=== PATIENT | female | born 1975 | race Caucasian/White ===

== ENCOUNTER → 2017-08-02 | Outpatient (CLI) | payer BC ==
--- NOTE | 2017-08-02 18:23 | WOMENS IMAGING REPORT ---
EXAM DESCRIPTION: BILAT SCREENING MAMMO W/CAD COMPLETED DATE/TIME: 08/02/2017 3:27 pm REASON FOR STUDY: SCREENING MAMMO Z12.39 ENCOUNTER FOR [facility] SCREENING FOR MALIGNANT NEOPLASM OF COMPARISON: Baseline study TECHNIQUE: Standard craniocaudal and mediolateral oblique views of each breast recorded using digita l acquisition. LIMITATIONS: None. FINDINGS: RIGHT BREAST MASSES: No suspicious masses. CALCIFICATIONS: No new or suspicious calcifications. ARCHITECTURAL DISTORTION: None. DEVELOPING DENSITY: None. ASYMMETRY: None noted. OTHER: Asymmetrically dense tissue is present in the right breast upper outer quadrant on MLO view on ly. This requires further evaluation with craniocaudad and 90 mediolateral tomosynthesis. If this finding persists then ultrasound of the right upper outer quadrant be required for followup. LEFT BREAST MASSES: No suspicious masses. CALCIFICATIONS: No new or suspicious calcifications. ARCHITECTURAL DISTORTION: None. DEVELOPING DENSITY: On the left breast CC view only, in the deep central breast a nodule versus super imposed shadows is present for which left breast CC and 90 tomosynthesis is recommended for followup . If this finding persists, then ultrasound of the left breast disease required for followup. ASYMMETRY: None noted. OTHER: No other significant findings. Read with the assistance of CAD. .[facility] - R2 Cenova Version 1.3 .[facility] - R2 Cenova Version 1.3 .[facility] - R2 Cenova Version 2.[address] - R2 Cenova Version 2.4 .[facility] - R2 [employer] Version 9.2 IMPRESSION: Bilateral mammographic findings which require further investigation with diagnostic mamm ograms/tomosynthesis. Possible bilateral breast ultrasound for followup also. BREAST DENSITY: c. The breasts are heterogeneously dense, which may obscure small masses. BIRAD: 0 Incomplete: Needs Additional Imaging Evaluation and/or prior Mammograms for Comparison. RECOMMENDATION: RECOMMENDED FOLLOW-UP: Bilateral diagnostic mammograms/ tomosynthesis and possible u ltrasound The patient will be contacted for additional imaging. COMMENT: The patient has been notified of the results by letter per MQSA requirements. Additional no tification policies are in place for contacting patient with suspicious or incomplete findings. Quality ID #225: The [employer] recommends an annual screening mammogram for women aged 40 years or over. This facility utilizes a reminder system to ensure that all patients receive reminder letters, and/or direct phone calls for appointments. This includes reminders for routine scr eening mammograms, diagnostic mammograms, or other Breast Imaging Interventions when appropriate. Th is patient will be placed in the appropriate reminder system. The [employer] (ACR) has developed recommendations for screening MRI of the breast s in certain patient populations, to be used in conjunction with mammography. Breast MRI surveillanc e may be appropriate for women with more than 20% lifetime risk of developing breast cancer as deter mined by genetic testing, significant family history of the disease, or history of mantle radiation f or Hodgkins Disease. ACR Practice Guidelines 2008. TECHNICAL DOCUMENTATION: FINDING NUMBER: (1) ASSESSMENT: (1) JOB ID: [id number] [employer]- All Rights Reserved
== END ==
LOC: WI 14:00
PROVIDERS: ATTEND Nurse Practitioner Family
DX: Z12.31 Encounter for screening mammogram for malignant neoplasm of breast (principal)
CPT/HCPCS: 77067; G0202

== ENCOUNTER → 2017-08-23 | Outpatient (CLI) | payer BC ==
--- NOTE | 2017-08-23 12:38 | WOMENS IMAGING REPORT ---
EXAM DESCRIPTION: 3D DX MAMMO BILAT COMPLETED DATE/TIME: 08/23/2017 11:12 am REASON FOR STUDY: INCONCLUSIVE MAMMO N63 UNSPECIFIED LUMP IN BREAST COMPARISON: 08/02/2017. TECHNIQUE: Bilateral MLO, CC, and true lateral images acquired with tomosynthesis. LIMITATIONS: None. FINDINGS: RIGHT BREAST MASSES: No suspicious masses. CALCIFICATIONS: No new or suspicious calcifications. ARCHITECTURAL DISTORTION: None. DEVELOPING DENSITY: None. ASYMMETRY: None noted. OTHER: No other significant findings. LEFT BREAST MASSES: No suspicious masses. CALCIFICATIONS: No new or suspicious calcifications. ARCHITECTURAL DISTORTION: None. DEVELOPING DENSITY: None. ASYMMETRY: None noted. OTHER: No other significant findings. IMPRESSION: Unremarkable bilateral mammogram. No worrisome findings. BREAST DENSITY: b. There are scattered areas of fibroglandular density. BIRAD: 1 Negative. RECOMMENDATION: RECOMMENDED FOLLOW UP: Birads 1 or 2: The patient should resume routine screening . SPECIFIC INTERVENTION/IMAGING/CONSULTATION RECOMMENDED:No additional intervention/ imaging/consultati on needed at this time. COMMUNICATION:The negative/benign results were communicated to the patient. COMMENT: The patient has been notified of the results by letter per MQSA requirements. Additional no tification policies are in place for contacting patient with suspicious or incomplete findings. Quality ID #[id number]: The [employer] recommends an annual screening mammogram for women aged 40 years or over. This facility utilizes a reminder system to ensure that all patients receive reminder letters, and/or direct phone calls for appointments. This includes reminders for routine scr eening mammograms, diagnostic mammograms, or other Breast Imaging Interventions when appropriate. Th is patient will be placed in the appropriate reminder system. The [employer] (ACR) has developed recommendations for screening MRI of the breast s in certain patient populations, to be used in conjunction with mammography. Breast MRI surveillanc e may be appropriate for women with more than 20% lifetime risk of developing breast cancer as deter mined by genetic testing, significant family history of the disease, or history of mantle radiation f or Hodgkins Disease. ACR Practice Guidelines 2008. DBT Technology DBT is a type of tomographic mammography. With conventional mammography, overlapping breast tissue ma y make lesions difficult to detect, even with good compression. DBT uses an x-ray tube that rotates a round the breast, taking images at different angles. These images are then combined to create thin sl ices of the breast that the radiologist can view as a 3D reconstruction. The Hologic unit can perform full-field digital mammograms (2D imaging); or DBT (3D imaging); or both, in a combination mode that quickly performs both the mammogram and the tomosynthesis scan while the breast is still compressed. RS [id number]: Fluoroscopic imaging is not utilized for breast tomosynthesis. TECHNICAL DOCUMENTATION: FINDING NUMBER: (1) ASSESSMENT: (1) JOB ID: [id number] [employer]- All Rights Reserved
== END ==
LOC: WI 10:42
PROVIDERS: ATTEND Nurse Practitioner Family
DX: N63 Unspecified lump in breast (principal)
CPT/HCPCS: G0279; G0204; 77062; 77066

== ENCOUNTER 2018-07-16 08:23 | Emergency (ER) | payer OTHER, BC ==
[2018-07-16] MEDS ORDERED: ASPIRIN 81 MG TABLET, CHEWABLE PO ONE (08:32)
--- NOTE | 2018-07-16 09:01 | RADIOLOGY REPORT (SQ) ---
EXAM DESCRIPTION: CHEST SINGLE VIEW COMPLETED DATE/TIME: 07/16/2018 8:55 am REASON FOR STUDY: Chest pain COMPARISON: 03/22/2012 EXAM PARAMETERS: NUMBER OF VIEWS: One view. TECHNIQUE: Single frontal radiographic view of the chest acquired. RADIATION DOSE: NA LIMITATIONS: None. FINDINGS: LUNGS AND PLEURA: No opacities, masses or pneumothorax. No pleural effusion. MEDIASTINUM AND HILAR STRUCTURES: No masses. Contour normal. HEART AND VASCULAR STRUCTURES: Heart normal in size. Normal vasculature. BONES: No acute findings. HARDWARE: None in the chest. OTHER: No other significant finding. IMPRESSION: NO ACUTE RADIOGRAPHIC FINDING IN THE CHEST. TECHNICAL DOCUMENTATION: JOB ID: [id number] [employer]- All Rights Reserved Reading location - IP/workstation name: [email or web address]
--- NOTE | 2018-07-16 09:06 | ER Document Report ---
ED Cardiac - General Chief Complaint: Chest Pain Stated Complaint: CHEST PAIN Time Seen by Provider: 07/16/18 09:05 Mode of Arrival: Ambulatory Information source: Patient TRAVEL OUTSIDE OF THE [place] IN LAST 30 DAYS: No - HPI Patient complains to provider of: Other - This 43-year-old female presents 4 combination of fatigue and chest discomfort which is similar to previous episodes in the past which have been attributed to pericardial effusion which she has had chronically. She is a myriad of complaints including some shortness of breath, some chest discomfort, occasional headaches, bowel rumbling without a sensation of cramping or abdominal pain uncertainty of whether or not she is ever had a heart attack stroke or other health problem. She is currently on [facility] from [facility] [employer] for her chest pain and effusion as well as chronic low back pain and radiculopathy. She denies any recent trauma, falls, fevers, chills, rashes or other symptoms. Nothing seems to make this any better, having to do thinks makes it worse. - Related Data Allergies/Adverse Reactions: No Known Allergies Allergy (Verified 07/16/18 08:28) Past Medical History - General Information source: Patient - Social History Smoking Status: Never Smoker Family History: None - Past Medical History Cardiac Medical History: Denies: Hx Coronary Artery Disease, Hx Heart Attack, Hx Hypertension Pulmonary Medical History: Denies: Hx Asthma, Hx Bronchitis, Hx COPD, Hx Pneumonia Neurological Medical History: Denies: Hx Cerebrovascular Accident, Hx Seizures Musculoskeletal Medical History: Denies Hx Arthritis Past Surgical History: Denies: Hx Hysterectomy - Immunizations Hx Diphtheria, Pertussis, Tetanus Vaccination: Yes Hx Pneumococcal Vaccination: 11/28/00 Review of Systems - Review of Systems Constitutional: Malaise, Weakness, Weight gain EENT: No symptoms reported, See HPI Cardiovascular: Chest pain, Palpitations, Dyspnea Respiratory: Short of breath Gastrointestinal: Other - rumbling bowels Genitourinary: No symptoms reported Musculoskeletal: Back pain Hematologic/Lymphatic: No symptoms reported Neurological/Psychological: Headaches Physical Exam - Vital signs Vitals: Temp Pulse Resp BP Pulse Ox 97.9 F 80 16 133/74 H 97 07/16/18 08:35 07/16/18 08:35 07/16/18 08:35 07/16/18 08:35 07/16/18 08:35 - General General appearance: Appears well In distress: None - HEENT Head: Normocephalic Eyes: Normal Conjunctiva: Normal Cornea: Normal Extraocular movements intact: Yes Ears: Normal External canal: Normal - Respiratory Respiratory status: No respiratory distress Chest status: Tender Breath sounds: Normal Chest palpation: Normal - Cardiovascular Rhythm: Regular Heart sounds: Normal auscultation Murmur: No - Abdominal Inspection: Normal, Obese Distension: No distension Bowel sounds: Normal Tenderness: Nontender - Back Back: Normal, Tender - Extremities General upper extremity: Normal inspection General lower extremity: Normal inspection - Neurological Neuro grossly intact: Yes Cognition: Normal Orientation: AAOx4 [place] Coma Scale Eye Opening: Spontaneous [place] Coma Scale Verbal: Oriented Speech: Normal Cranial nerves: Normal Motor strength normal: LUE, RUE, LLE, RLE - Psychological Associated symptoms: Normal affect Course - Re-evaluation Re-evalutation: 07/16/18 10:30 This 43-year-old female presents with a myriad of complaints, is difficult to ascertain what her primary complaint is today though it seems to be shortness of breath and fatigue. She notes that she has had shortness of breath and fatigue in the past which has been attributed to her chronic pericardial effusion of an unknown etiology. She is also got what she says is issues with headaches in the past as well as bowel gurgling and some intermittent chest tightness for which she has been evaluated by a manager mba as well as multiple times at the [facility] she is currently prescribed a Holter monitor and being evaluated in 1 month to see if there have been any events. On examination she is a very well-appearing woman with nonfocal examination, her heart sound is normal there is no appreciable rub gallops or murmurs. We will plan for troponin 2, will plan for chest x-ray, chemistry and count and a bedside ultrasound to evaluate for possible effusion. Chest x-ray is normal, initial chemistry encounter within normal limits. Have added TSH. Patient with 2 negative troponins, unremarkable chest x-ray, unremarkable chemistry and count. Her EKG is nondiagnostic, bedside ultrasound does not demonstrate any obvious effusion for this patient's chest pain. Her symptoms essentially resolved on emergency department, she is amenable to going home at this time and using NSAIDs for her pain. She will call her doctor tomorrow to follow-up. 07/16/18 18:30 - Vital Signs Vital signs: Temp Pulse Resp BP Pulse Ox 98.0 F 80 14 125/93 H 100 07/16/18 11:58 07/16/18 08:35 07/16/18 11:01 07/16/18 11:01 07/16/18 11:01 - Laboratory Result Diagrams: 07/16/18 09:55 07/16/18 09:55 Laboratory results interpreted by me: 07/16/18 09:55 MCV 77 L MCH 25.2 L RDW 14.7 H - EKG Interpretation by Me EKG shows normal: Sinus rhythm - 77 bpm, normal axis, poor R-wave progression, T -wave inversion in lead III Discharge - Discharge Clinical Impression: [place] Fatigue Qualifiers: Fatigue type: unspecified Qualified Code(s): R53.83 - Other fatigue Chest pain Qualifiers: Chest pain type: unspecified Qualified Code(s): R07.9 - Chest pain, unspecified Condition: Good Disposition: HOME, SELF-CARE Instructions: Beta Blockers ([facility]), Chest Pain of Unclear Cause ([facility]), Ibuprofen (General) ([facility]) Prescriptions: Propranolol HCl [Inderal 10 mg Tablet] 10 mg PO DAILY #21 tab Referrals: SAURAV ZEPEDA CRNP [COMMUNITY BASED STAFF] - Follow up as needed
[2018-07-16 10:10] LABS: ABSOLUTE BASOPHILS # (AUTO) 0.1 10^3/uL (0.0-0.2); ABSOLUTE EOSINOPHILS # (AUTO) 0.1 10^3/uL (0.0-0.6); ABSOLUTE LYMPHOCYTES (AUTO) 1.8 10^3/uL (0.5-4.7); ABSOLUTE MONOCYTES (AUTO) 0.6 10^3/uL (0.1-1.4); ABSOLUTE NEUT (AUTO) 5.8 10^3/uL (1.7-8.2); BASOPHILS % (AUTO) 0.9 % (0-2); EOSINOPHILS % (AUTO) 1.1 % (0-6); HEMATOCRIT 39.9 % (36.0-47.0); HEMOGLOBIN 13.1 g/dL (12.0-15.5); LYMPHOCYTES % (AUTO) 21.3 % (13-45); MEAN CORPUSCULAR HEMOGLOBIN 25.2 pg (27.0-33.4); MEAN CORPUSCULAR HGB CONC 32.7 g/dL (32.0-36.0); MEAN CORPUSCULAR VOLUME 77 fl (80-97); MONOCYTES % (AUTO) 7.3 % (3-13); PLATELET COUNT 324 10^3/uL (150-450); RED BLOOD COUNT 5.19 10^6/uL (3.72-5.28); RED CELL DISTRIBUTION WIDTH 14.7 % (11.5-14.0); SEGMENTED NEUTROPHILS % (AUTO) 69.4 % (42-78); TOTAL CELLS COUNTED % (AUTO) 100 %; WHITE BLOOD COUNT 8.3 10^3/uL (4.0-10.5)
[2018-07-16 10:25] LABS: ALANINE AMINOTRANSFERASE 35 U/L (9-52); ALBUMIN 4.1 g/dL (3.5-5.0); ALKALINE PHOSPHATASE 88 U/L (38-126); ANION GAP 14 (5-19); ASPARTATE AMINO TRANSFERASE 31 U/L (14-36); BILIRUBIN,DIRECT 0.2 mg/dL (0.0-0.4); BILIRUBIN,TOTAL 0.4 mg/dL (0.2-1.3); BLOOD UREA NITROGEN 10 mg/dL (7-20); CALCIUM 9.2 mg/dL (8.4-10.2); CARBON DIOXIDE 25 mmol/L (22-30); CHLORIDE 105 mmol/L (98-107); GLUCOSE 100 mg/dL (75-110); POTASSIUM 4.1 mmol/L (3.6-5.0); SODIUM 143.8 mmol/L (137-145); TOTAL PROTEIN 7.6 g/dL (6.3-8.2)
[2018-07-16 11:25] VITALS: BP 125/93
[2018-07-16 12:00] LABS: APPEARANCE,URINE TURBID; BILIRUBIN,URINE NEGATIVE (NEGATIVE); GLUCOSE, URINE NEGATIVE (NEGATIVE); KETONES,URINE NEGATIVE (NEGATIVE); LEUKOCYTE ESTERASE,URINE NEGATIVE (NEGATIVE); NITRITE,URINE NEGATIVE (NEGATIVE); PROTEIN,URINE NEGATIVE (NEGATIVE); URINE SPECIFIC GRAVITY 1.026; UROBILINOGEN,URINE NEGATIVE mg/dL (<2.0)
[2018-07-16 12:02] LABS: COLOR,URINE YELLOW
--- NOTE | 2018-07-16 12:52 | EKG REPORT ---
SEVERITY:- BORDERLINE ECG - SINUS RHYTHM RIGHT AXIS DEVIATION BORDERLINE T ABNORMALITIES, ANTERIOR LEADS : Confirmed by: Kai Antony MD 16-Jul-2018 12:51:45
== END 2018-07-16 11:58 | disposition home or self-care (01) ==
LOC: ER 08:23
DX: R07.9 Chest pain, unspecified (principal); R53.83 Other fatigue; R53.81 Other malaise; R06.02 Shortness of breath; E66.9 Obesity, unspecified
CPT/HCPCS: 36415; 71045; 80053; 81001; 84443; 84484; 85025; 93005; 93010; 99285